=== PATIENT | female | born 2000 | race Caucasian/White ===

== ENCOUNTER → 2018-03-06 | Outpatient (CLI) | payer OTHER ==
[~2018-03-06] MED LIST: IOPAMIDOL 76% 75 ML INFUS BTL 75 ML ONE; NORG1TAB74 PO; ONDA4TAB97 PO; OXYC-865 PO
--- NOTE | 2018-03-06 17:53 | RADIOLOGY IMAGING REPORT ---
FACILITY: [facility] - [place] PATIENT NAME: Heather Escamilla : 2000 MR: [id number] V: [id number] EXAM DATE: ORDERING PHYSICIAN: JENNIFER TORO TECHNOLOGIST: Location: [facility] Patient: Heather Escamilla : 2000 Visit/Account:[id number] Date of Sevice: 03/06/2018 EXAMINATION: CT facial bone with IV contrast HISTORY: Pain left eye socket (not the eye) and swelling and pain behind left soft palate for the p ast week. COMPARISON: None. TECHNIQUE: Axial images were obtained from the superior aspect of the orbits through the inferior as pect of mandible with IV contrast. Coronal and sagittal reformatted images were obtained from the axi al source data. CONTRAST: 75 mL of IV Isovue-370. One of the following dose optimization techniques was utilized in the performance of this exam: Autom ated exposure control; adjustment of the mA and/or kV according to the patient's size; or use of an i terative reconstruction technique. Specific details can be referenced in the facility's radiology C T exam operational policy. FINDINGS: Soft tissues: There is no focal soft tissue abnormality. No focal abnormality of either orbit or the soft palate. Mandible/TMJ: Negative. Maxilla/pterygoid plates: Negative. Zygoma/zygomatic arches: Negative. Orbits: Negative. Nasal bones/nasal septum: Negative. Frontal bones: Negative. Enhancement: Normal. Sinuses: Mild mucosal thickening in the right maxillary sinus. No air-fluid levels. Visualized brain: Negative. IMPRESSION: 1. No explanation for the patient's symptoms. If there is persistent pain, MRI of the orbits without and with IV contrast could be done for further evaluation. 2. Mild nonobstructive inflammation of the right maxillary sinus. Report Dictated By: Radha De La Rosa MD at 03/06/2018 5:47 PM Report E-Signed By: Radha De La Rosa MD at 03/06/2018 5:50 PM [id number]
== END ==
LOC: CT 10:13
PROVIDERS: ATTEND Nurse Practitioner Family
DX: J32.0 Chronic maxillary sinusitis (principal)
CPT/HCPCS: 70487; Q9967

== ENCOUNTER → 2018-09-02 | Outpatient (CLI) | payer OTHER ==
[~2018-09-02] MED LIST changes: -IOPAMIDOL 76% 75 ML INFUS BTL 75 ML ONE
[2018-09-02 14:54] LABS: PLATELET COUNT, AUTOMATED 259 K/uL (150-450)
== END ==
LOC: LAB 14:40
PROVIDERS: ATTEND Nurse Practitioner Family
DX: R07.9 Chest pain, unspecified (principal); R42 Dizziness and giddiness; R10.9 Unspecified abdominal pain
CPT/HCPCS: 36415; 82040; 82150; 82247; 82310; 82374; 82435; 82565; 82947; 83690; 84075; 84132; 84155; 84295; 84443; 84450; 84460; 84520; 85025; 85379

== ENCOUNTER 2018-10-12 14:33 | Emergency (ER) | payer OTHER ==
--- NOTE | 2018-10-12 14:44 | ER Report ---
History and Physical Time Seen By MD: 14:44 HPI/ROS CHIEF COMPLAINT: Headache, visual changes, nausea HISTORY OF PRESENT ILLNESS: 18-year-old female patient presents to the emergency room with complaint of headache, visual changes, nausea and numbness to the left side of her body. Patient states this started today while she was in class. She states she's had this small headache for the past day or 2. She states while she was in class she developed a bright spot in the left eye. She states she is unable to read anything. She states when she looked at the chalk board she is able to see some words on the outside of the right spot. Patient states that she went home, extremities something that became very nauseated because the smell. She laid down and the headache seemed to get worse. She said she did go see someone at [facility]. All she was doing that she developed numbness to the left side of her body. She denies any weakness, but she does state the left- sided robotic seems abnormal. Patient states she is not taking any medication for this. She was evaluated at [facility] and referred to the emergency room for evaluation of her headache. REVIEW OF SYSTEMS: Respiratory: No cough, no dyspnea. Cardiovascular: No chest pain, no palpitations. Gastrointestinal: As noted above Musculoskeletal: No back pain. Allergies: Coded Allergies: banana (Verified Allergy, Severe, ANAPHYLAXIS, 03/26/17) latex (Verified Allergy, Unknown, 03/26/17) Home Meds Active Scripts Ondansetron 4 Mg Odt (ONDANSETRON 4 MG ODT) 4 Mg Tab.rapdis, 4 MG PO Q6H PRN for NAUSEA/VOMITING, #20 TAB Prov:ISABEL SIERRA [employer]PPORT[employer] OFFICER 10/12/18 Ketorolac Tromethamine (KETOROLAC TROMETHAMINE) 10 Mg Tab, 10 MG PO Q6H, #20 TAB Prov:ISABEL SIERRA [employer] OFFICER 10/12/18 Reported Medications Norgestimate-Ethinyl Estradiol (SPRINTEC) 1 Each Tablet, 1 EACH PO 03/26/17 Discontinued Scripts Oxycodone Hcl/Acetaminophen (PERCOCET 5-325 MG TABLET) 1 Each Tablet, 1 EACH PO Q4-6H PRN for pain, #12 Prov:CHIN RO DO 03/26/17 Ondansetron Hcl (ZOFRAN) 4 Mg Tablet, 4 MG PO Q6H PRN for NAUSEA/VOMITING, #10 Prov:CHIN RO DO 03/26/17 Past Medical/Surgical History Patient has a past medical history of migraines, allergic reactions. Patient has surgical history of nasal surgery, wisdom teeth removed. Reviewed Nurses Notes: Yes Hx Substance Use Disorder: No Hx Alcohol Use: No Constitutional Vital Sign - Last 24 Hours 10/12/18 10/12/18 10/12/18 10/12/18 14:33 14:38 14:44 15:00 Temp 99.0 Pulse ??? 78 Resp 24 B/P (MAP) 137/77 (97) 137/77 118/81 (93) Pulse Ox 97 O2 Delivery Room Air 10/12/18 10/12/18 10/12/18 10/12/18 15:03 15:14 15:30 15:33 Pulse 77 79 B/P (MAP) 129/93 (105) 116/69 (85) Pulse Ox 94 93 10/12/18 10/12/18 10/12/18 10/12/18 16:00 16:03 16:30 17:00 Pulse 83 72 94 B/P (MAP) 115/67 (83) 117/70 (86) 114/69 (84) Pulse Ox 94 95 88 10/12/18 17:30 Pulse 71 B/P (MAP) 119/75 (90) Pulse Ox 93 Physical Exam General Appearance: The patient is alert, has no immediate need for airway protection and no current signs of toxicity. Respiratory: Chest is non tender, lungs are clear to auscultation. Cardiac: regular rate and rhythm Gastrointestinal: Abdomen is soft and non tender, no masses, bowel sounds nor mal. Musculoskeletal: Neck: Neck is supple and non tender. Extremities have full range of motion and are non tender. Skin: No rashes or lesions. Neuro: Patient is alert and oriented 4, cranial nerves II through XII grossly intact. DIFFERENTIAL DIAGNOSIS: After history and physical exam differential diagnosis was considered for headache including but not limited to subarachnoid hemorrhage, migraine headache, tension headache and infectious causes such as meningitis, pharyngitis and sinusitis. Medical Decision Making Data Points Result Diagram: 10/12/18 1508 10/12/18 1508 Laboratory Hematology Test 10/12/18 15:08 Red Blood Count 5.11 M/uL (4.17-5.56) Mean Corpuscular Volume 85.8 fL (80.0-96.0) Mean Corpuscular Hemoglobin 29.1 pg (26.0-33.0) Mean Corpuscular Hemoglobin Concent 33.9 g/dL (32.0-36.0) Red Cell Distribution Width 12.1 % (11.5-14.5) Mean Platelet Volume 7.6 fL (7.2-11.1) Neutrophils (%) (Auto) 66.1 % (39.4-72.5) Lymphocytes (%) (Auto) 25.6 % (17.6-49.6) Monocytes (%) (Auto) 7.3 % (4.1-12.4) Eosinophils (%) (Auto) 0.8 % (0.4-6.7) Basophils (%) (Auto) 0.2 % (0.3-1.4) Nucleated RBC Relative Count (auto) 0.0 /100WBC Neutrophils # (Auto) 6.1 K/uL (2.0-7.4) Lymphocytes # (Auto) 2.4 K/uL (1.3-3.6) Monocytes # (Auto) 0.7 K/uL (0.3-1.0) Eosinophils # (Auto) 0.1 K/uL (0.0-0.5) Basophils # (Auto) 0.0 K/uL (0.0-0.1) Nucleated RBC Absolute Count (auto) 0.00 K/uL Erythrocyte Sedimentation Rate < 1 mm/HOUR (0-20) Sodium Level 138 mmol/L (137-145) Potassium Level 3.6 mmol/L (3.5-5.0) Chloride Level 105 mmol/L (98-107) Carbon Dioxide Level 25 mmol/L (22-31) Blood Urea Nitrogen 12 mg/dl (7-18) Creatinine 0.80 mg/dl (0.52-1.04) Glomerular Filtration Rate Calc > 60.0 Random Glucose 83 mg/dl (75-110) Calcium Level 9.3 mg/dl (8.4-10.2) Total Bilirubin 0.4 mg/dl (0.2-1.3) Aspartate Amino Transf (AST/SGOT) 23 U/L (0-35) Alanine Aminotransferase (ALT/SGPT) 23 U/L (0-56) Alkaline Phosphatase 55 U/L (0-126) C-Reactive Protein < 0.5 mg/dl (<1.0) Total Protein 7.4 g/dl (6.3-8.2) Albumin 4.4 g/dl (3.5-5.0) Human Chorionic Gonadotropin, Qual Negative (NEGATIVE) Chemistry Test 10/12/18 15:08 White Blood Count 9.3 k/uL (4.5-11.0) Red Blood Count 5.11 M/uL (4.17-5.56) Hemoglobin 14.9 g/dL (12.0-16.0) Hematocrit 43.8 % (34.0-47.0) Mean Corpuscular Volume 85.8 fL (80.0-96.0) Mean Corpuscular Hemoglobin 29.1 pg (26.0-33.0) Mean Corpuscular Hemoglobin Concent 33.9 g/dL (32.0-36.0) Red Cell Distribution Width 12.1 % (11.5-14.5) Platelet Count 403 K/uL (150-450) Mean Platelet Volume 7.6 fL (7.2-11.1) Neutrophils (%) (Auto) 66.1 % (39.4-72.5) Lymphocytes (%) (Auto) 25.6 % (17.6-49.6) Monocytes (%) (Auto) 7.3 % (4.1-12.4) Eosinophils (%) (Auto) 0.8 % (0.4-6.7) Basophils (%) (Auto) 0.2 % (0.3-1.4) Nucleated RBC Relative Count (auto) 0.0 /100WBC Neutrophils # (Auto) 6.1 K/uL (2.0-7.4) Lymphocytes # (Auto) 2.4 K/uL (1.3-3.6) Monocytes # (Auto) 0.7 K/uL (0.3-1.0) Eosinophils # (Auto) 0.1 K/uL (0.0-0.5) Basophils # (Auto) 0.0 K/uL (0.0-0.1) Nucleated RBC Absolute Count (auto) 0.00 K/uL Erythrocyte Sedimentation Rate < 1 mm/HOUR (0-20) Glomerular Filtration Rate Calc > 60.0 Calcium Level 9.3 mg/dl (8.4-10.2) Total Bilirubin 0.4 mg/dl (0.2-1.3) Aspartate Amino Transf (AST/SGOT) 23 U/L (0-35) Alanine Aminotransferase (ALT/SGPT) 23 U/L (0-56) Alkaline Phosphatase 55 U/L (0-126) C-Reactive Protein < 0.5 mg/dl (<1.0) Total Protein 7.4 g/dl (6.3-8.2) Albumin 4.4 g/dl (3.5-5.0) Human Chorionic Gonadotropin, Qual Negative (NEGATIVE) EKG/Imaging Imaging EXAMINATION: CT head without IV contrast HISTORY: Headache. Light sensitivity. Left hand, cheek, tongue numbness. TECHNIQUE: Axial CT images of the head were obtained from the vertex to the skull base without IV contrast, with coronal and sagittal 2D reconstructed images. One of the following dose optimization techniques was utilized in the performance of this exam: Automated exposure control; adjustment of the mA and/or kV according to the patient's size; or use of an iterative reconstruction technique. Specific details can be referenced in the facility's radiology CT exam operational policy. COMPARISON: None. FINDINGS: The intracranial contents are unremarkable. No CT evidence of intracranial hemorrhage, mass lesion, or acute infarct. No midline shift or extra-axial fluid collections. Wright-white differentiation is maintained. The calvarium is intact. Small amount of layering fluid in the partially visualized left maxillary sinus. The visualized paranasal sinuses and mastoid air cells are unopacified. IMPRESSION: 1. No CT evidence of acute intracranial pathology. 2. Inflammatory sinus disease in the left maxillary sinus with a small amount of layering fluid. Report Dictated By: Cristhian Shannon MD at 10/12/2018 4:39 PM Report E-Signed By: Cristhian Shannon MD at 10/12/2018 4:43 PM ED Course/Re-evaluation ED Course Patient was admitted to exam room, history and physical were obtained. Differential diagnoses were considered. On examination lungs are clear, heart is regular, abdomen soft nontender. Cranial nerves II through XII grossly intact, patient is alert and oriented 4. With the headache being different than her typical headache a CT scan of the head was done. The results were unremarkable. Patient had an IV started, received a liter of normal saline. After receiving the negative result of the CT scan we did go ahead and treat her with 15 mg of Toradol, 25 mg of Benadryl, 12.5 mg of Phenergan and 30 mg of Norflex. On reevaluation patient states she does feel better. She states that the headache has improved. She states that the bright lights in her vision have gone away. She is tired and would like to be discharged home so she get some sleep. She did have her boyfriend, Sharla. Patient will be discharged this time. She is to follow-up with primary care provider. If she has persistent headaches and would like her to follow-up with neurology for further evaluation. Patient verbalized understanding and agreement with plan. Decision to Disposition Date: Oct 12, 2018 Decision to Disposition Time: 18:24 Depart Departure Latest Vital Signs Vital Signs Date Time Temp Pulse Resp B/P (MAP) Pulse Ox O2 Delivery O2 Flow Rate FiO2 10/12/18 17:30 71 119/75 (90) 93 10/12/18 14:44 99.0 24 Room Air Impression: Primary Impression: Ocular migraine Condition: Improved Disposition: HOME OR SELF-CARE New Scripts Ondansetron 4 Mg Odt (ONDANSETRON 4 MG ODT) 4 Mg Tab.rapdis 4 MG PO Q6H PRN for NAUSEA/VOMITING, #20 TAB Prov: ISABEL SIERRA 10/12/18 Ketorolac Tromethamine (KETOROLAC TROMETHAMINE) 10 Mg Tab 10 MG PO Q6H, #20 TAB Prov: ISABEL SIERRA 10/12/18 Patient Instructions: Ocular Migraine (ED) Additional Instructions: Increase fluid intake. Get plenty of rest. Follow up with your primary care provider in the next week. Return to the ER if condition worsens. Continue with your normal medications. Kep a journal to monitor for possible triggers of your headaches and migraines. ISABEL SIERRA Oct 12, 2018 14:44
[2018-10-12] MEDS ORDERED: NS(*) 0.9% 1000 ML BAG 1,000 ML IV ONE ×2 (14:56→17:15)
[2018-10-12] MEDS ORDERED: ONDANSETRON 4 MG/2 ML VIAL IVP ONE (15:00)
[2018-10-12 15:26] LABS: PLATELET COUNT, AUTOMATED 403 K/uL (150-450)
--- NOTE | 2018-10-12 16:46 | RADIOLOGY IMAGING REPORT ---
FACILITY: [facility] - [place] PATIENT NAME: Heather Escamilla : 2000 MR: [id number] V: [id number] EXAM DATE: ORDERING PHYSICIAN: ISABEL SIERRA TECHNOLOGIST: Location: [facility] [place] Patient: Heather Escamilla : 2000 Visit/Account:[id number] Date of Sevice: 10/12/2018 EXAMINATION: CT head without IV contrast HISTORY: Headache. Light sensitivity. Left hand, cheek, tongue numbness. TECHNIQUE: Axial CT images of the head were obtained from the vertex to the skull base without IV c ontrast, with coronal and sagittal 2D reconstructed images. One of the following dose optimization techniques was utilized in the performance of this exam: Autom ated exposure control; adjustment of the mA and/or kV according to the patient's size; or use of an i terative reconstruction technique. Specific details can be referenced in the facility's radiology C T exam operational policy. COMPARISON: None. FINDINGS: The intracranial contents are unremarkable. No CT evidence of intracranial hemorrhage, mass lesion, or acute infarct. No midline shift or extra-axial fluid collections. Wright-white differentiation is maintained. The calvarium is intact. Small amount of layering fluid in the partially visualized left maxillary s inus. The visualized paranasal sinuses and mastoid air cells are unopacified. IMPRESSION: 1. No CT evidence of acute intracranial pathology. 2. Inflammatory sinus disease in the left maxillary sinus with a small amount of layering fluid. Report Dictated By: Cristhian Shannon MD at 10/12/2018 4:39 PM Report E-Signed By: Cristhian Shannon MD at 10/12/2018 4:43 PM [id number]
[2018-10-12] MEDS ORDERED: diphenhydrAMINE 50 MG/ML VIAL IVP ONE (16:55)
[2018-10-12] MEDS ORDERED: ORPHENADRINE 60MG/2ML INJ IVP ONE (16:55)
[2018-10-12] MEDS ORDERED: PROMETHAZINE 25 MG/ML 1 ML AMP IVP ONE (16:55)
[2018-10-12] MEDS ORDERED: KETOROLAC 15 MG/ML VIAL IVP ONE (16:55)
[2018-10-12 17:30] VITALS: BP 119/75
[2018-10-12] MEDS ORDERED: KET10 PO (18:25)
[2018-10-12] MEDS ORDERED: ONDA4TAB9 PO (18:25)
== END 2018-10-12 18:34 | disposition home or self-care (01) ==
LOC: ER 15:01
DX: G43.809 Other migraine, not intractable, without status migrainosus (principal)
CPT/HCPCS: 70450; 84703; 85025; 85651; 86140; 96361; 96374; 96375; 99284; J1200; J1885; J2360; J2405; J2550; J7030; 82040; 82247; 82310; 82374; 82435; 82565; 82947; 84075; 84132; 84155; 84295; 84450; 84460; 84520